=== PATIENT | male | born 1970 | race American Indian/Alaskan Native ===

== ENCOUNTER 2017-11-29 19:47 | Emergency (ER) | payer MEDICAID ==
[2017-11-29 19:48] VITALS: BMI 26.9
[2017-11-29] MEDS ORDERED: Albuterol-Ipratrop 3 mg / 0.5 (3 ml) UD IH STA (21:41)
--- NOTE | 2017-11-29 21:57 | ED PDOC ---
Arrival/HPI - General Historian: Patient - History of Present Illness Narrative History of Present Illness (Text): 11/29/17 21:53 47-year-old male w/ PMH of HTN, high cholesterol, asthma, complains of sore throat and cough productive of green sputum x 4 days, with tactile fever y esterday. He adds that his asthma is "acting up." Otherwise: (-) chills, (-) chest pain, (-) dyspnea, (-) hemoptysis, (-) upper back pain, (-) travel, (-) recent prolonged immobility, (-) sick contacts. PMD Gomez <Portia Arriola PA-C - Last Filed: 11/30/17 01:17> <Feliz Goldsmith - Last Filed: 12/04/17 00:20> - General Chief Complaint: ENT Problem Time Seen by Provider: 11/29/17 21:41 Past Medical History - Cardiac Hx Cardiac Disorders: No - Pulmonary Hx Respiratory Disorders: Yes Hx Asthma: Yes - Neurological Hx Neurological Disorder: No HX Cerebrovascular Accident: No Hx Seizures: No - HEENT Hx HEENT Disorder: No - Renal Hx Renal Disorder: No - Endocrine/Metabolic Hx Endocrine Disorders: No - Hematological/Oncological Hx Blood Disorders: No - Integumentary Hx Dermatological Disorder: Yes Hx Eczema: Yes - Musculoskeletal/Rheumatological Hx Musculoskeletal Disorders: No - Gastrointestinal Hx Gastrointestinal Disorders: No - Genitourinary/Gynecological Hx Genitourinary Disorders: No Hx Sexually Transmitted Diseases: No - Psychiatric Hx Psychophysiologic Disorder: Yes Hx Anxiety: Yes Hx Depression: Yes Hx Substance Use: Yes (heroin) - Surgical History Hx Musculoskeletal Surgery: Yes - Anesthesia Hx Anesthesia: Yes Hx Anesthesia Reactions: No Hx Malignant Hyperthermia: No <Portia Arriola PA-C - Last Filed: 11/30/17 01:17> Family/Social History Family/Social History: Unknown Family HX Smoking Status: Current Some Days Smoker Hx Alcohol Use: Yes (beer) Frequency of alcohol use: Socially Hx Substance Use: Yes (heroin) Substance used: heroin <Portia Arriola PA-C - Last Filed: 11/30/17 01:17> Allergies/Home Meds <Portia Arriola PA-C - Last Filed: 11/30/17 01:17> <Feliz Goldsmith - Last Filed: 12/04/17 00:20> Allergies/Adverse Reactions: Allergies No Known Allergies Allergy (Verified 11/29/17 20:09) Home Medications: Home Meds Medication Instructions Recorded Confirmed Albuterol HFA [Ventolin HFA 90 0.09 mg IH PRN PRN 05/05/16 05/05/16 mcg/actuation (8 g)] Review of Systems - Review of Systems Constitutional: Fevers. absent: Fatigue ENT: Sore Throat. absent: Rhinorrhea, Sinus Congestion Respiratory: Cough, Wheezing. absent: SOB, Sputum Cardiovascular: absent: Chest Pain, Palpitations Gastrointestinal: absent: Abdominal Pain, Diarrhea, Vomiting Genitourinary Male: absent: Dysuria, Frequency, Hematuria Musculoskeletal: absent: Arthralgias, Back Pain, Neck Pain Skin: absent: Rash, Pruritis, Skin Lesions Neurological: absent: Headache, Dizziness <Portia Arriola PA-C - Last Filed: 11/30/17 01:17> Physical Exam - Physical Exam Narrative Physical Exam (Text): 11/29/17 21:56 GENERAL APPEARANCE: Patient is awake, alert, oriented x 3, in no acute distress. Speaking in full sentences. SKIN: Warm, dry; (-) cyanosis. EYES: (-) conjunctival pallor. ENMT: Mucous membranes moist. Airway patent: (-) stridor. Pharynx: (-) swelling, (-) erythema, (-) exudate. NECK: (-) tenderness, (-) stiffness, (-) lymphadenopathy. CHEST AND RESPIRATORY: (+) rhonchi slightly noted to the LLL, (-) rales, (+) faint expiratory wheezes to the lung base, (-) pleural rub; breath sounds equal bilaterally. HEART AND CARDIOVASCULAR: (-) irregularity; (-) murmur, (-) gallop. ABDOMEN AND GI: Soft; (-) tenderness. EXTREMITIES: (-) deformity; (-) edema. NEURO AND PSYCH: Mental status as above. Cranial nerves grossly intact; strength symmetric. Vital Signs Temp Pulse Resp BP Pulse Ox 11/29/17 20:10 99.1 F 102 H 17 151/90 H 96 <Portia Arriola PA-C - Last Filed: 11/30/17 01:17> Vital Signs Temp Pulse Resp BP Pulse Ox 11/29/17 23:19 99.0 F 90 18 157/87 H 97 11/29/17 20:10 99.1 F 102 H 17 151/90 H 96 <Feliz Goldsmith - Last Filed: 12/04/17 00:20> Medical Decision Making ED Course and Treatment: 11/29/17 21:57 Plan : - CXR - Duoneb CXR : NAD, as read by DAVID On reevaluation, patient reports improvement of symptoms, denies any CP or SOB. On exam, patient remains awake alert and oriented 3 in no acute distress. Neck is supple, lungs are clear to auscultation, cardiac regular rate and rhythm, repeat neuro exam shows no focal findings. XR results d/w the patient. Dx of bronchitis d/w the patient. Advised to follow up with primary care physician in 1-2 days without fail. Advi sed to take medication as prescribed. Return to the emergency room at any time for any new or worsening symptoms. Patient states he fully agrees with and understands discharge instructions. States that he agrees with the plan and disposition. Verbalized and repeated discharge instructions and plan. I have given the patient opportunity to ask any additional questions. - RAD Interpretation Radiology Orders: 11/29/17 21:41 CHEST ONE VIEW [RAD] Stat - Medication Orders Current Medication Orders: Discontinued Medications Albuterol/Ipratropium (Duoneb 3 Mg/0.5 Mg (3 Ml) Ud) 3 ml IH STAT STA Stop: 11/29/17 21:42 <Portia Arriola PA-C - Last Filed: 11/30/17 01:17> - RAD Interpretation Radiology Orders: 11/29/17 21:41 CHEST ONE VIEW [RAD] Stat - Medication Orders Current Medication Orders: Discontinued Medications Albuterol/Ipratropium (Duoneb 3 Mg/0.5 Mg (3 Ml) Ud) 3 ml IH STAT STA Stop: 11/29/17 21:42 Last Admin: 11/29/17 21:54 Dose: 3 ml Azithromycin (Zithromax) 500 mg PO STAT STA; Protocol Stop: 11/29/17 23:03 Last Admin: 11/29/17 23:18 Dose: 500 mg Prednisone (Prednisone Tab) 40 mg PO STAT STA Stop: 11/29/17 23:06 Last Admin: 11/29/17 23:18 Dose: 40 mg <Feliz Goldsmith - Last Filed: 12/04/17 00:20> - PA / TUNNEL MAN / Resident Statement CINDY has reviewed & agrees with the documentation as recorded. <Portia Arriola PA-C - Last Filed: 11/30/17 01:17> - PA / TUNNEL MAN / Resident Statement CINDY has reviewed & agrees with the documentation as recorded. <Feliz Goldsmith - Last Filed: 12/04/17 00:20> Disposition/Present on Arrival - Present on Arrival Any Indicators Present on Arrival: No History of DVT/PE: No History of Uncontrolled Diabetes: No Urinary Catheter: No History of Decub. Ulcer: No History Surgical Site Infection Following: None - Disposition Have Diagnosis and Disposition been Completed?: Yes Disposition Time: 23:00 Patient Plan: Discharge <Portia Arriola PA-C - Last Filed: 11/30/17 01:17> <Feliz Goldsmith - Last Filed: 12/04/17 00:20> - Disposition Diagnosis: Asthma, Acute bronchitis Disposition: HOME/ ROUTINE Condition: STABLE Discharge Instructions (ExitCare): Asthma in Adults, Acute Bronchitis Additional Instructions: Thank you for letting us take care of you today. You were treated for asthma, acute bronchitis. The emergency medical care you received today was directed at your acute symptoms. If you were prescribed any medication, please fill it and take as directed. It may take several days for your symptoms to resolve. Return to the Emergency Department if your symptoms worsen, do not improve, or if you have any other problems. Please contact your doctor in 2 days for re-evaluation and follow up. Bring any paperwork you were given at discharge with you along with any medications you are taking to your follow up visit. Our treatment cannot replace ongoing medical care by a primary care provider (PCP) outside of the emergency department. Thank you for allowing the [facility] team to be part of your care today. If you had an X-Ray: A Radiologist will review the ED reading if any change in treatment is needed we will contact you. Prescriptions: Albuterol HFA [Ventolin HFA 90 mcg/actuation (8 g)] 2 puff IH [id number] #1 puff Albuterol 0.083% [Albuterol Sulfate 3 Ml] 3 ml IH Q4 #100 neb Azithromycin [Zithromax] 250 mg PO DAILY #4 tab RX: Guaifenesin [Adult Tussin Chest Congestion] 200 mg PO Q6H PRN #200 ml PRN Reason: Cough RX: Nebulizer [Aeroeclipse II] 1 each MC DAILY #1 each RX: predniSONE [predniSONE Tab] 40 mg PO DAILY #8 tab Forms: [facility] ([facility]), WORK NOTE
[2017-11-29 23:21] VITALS: BP 157/87; PULSE 90; RESP 18; TEMP 99; O2SAT 97
--- NOTE | 2017-11-30 07:31 | RAD ---
HISTORY: cough COMPARISON: None available TECHNIQUE: Chest, one view. FINDINGS: LUNGS: Mild right basilar atelectasis. Please note that chest x-ray has limited sensitivity for the detection of pulmonary masses. PLEURA: No significant pleural effusion identified. No definite pneumothorax . CARDIOVASCULAR: Heart size appears top normal. OSSEOUS STRUCTURES: Degenerative changes. VISUALIZED UPPER ABDOMEN: Mild elevation of the right hemidiaphragm. OTHER FINDINGS: None. IMPRESSION: Mild right basilar atelectasis.
== END 2017-11-29 23:19 | disposition home or self-care (01) ==
LOC: ED 19:47
DX: J45.909 Unspecified asthma, uncomplicated (principal); I10 Essential (primary) hypertension; E78.00 Pure hypercholesterolemia, unspecified